=== PATIENT | female | born 1985 | race Hispanic/Latino ===

== ENCOUNTER 2023-11-15 22:40 | Inpatient (IN) | payer OTHER, SELFPAY ==
[2023-11-15 14:39] VITALS: BP 132/88
[2023-11-15 15:08] LABS: % Basophils 0.4 % (0-2); % Immature Granulocytes 0.5 % (0-0.5); % Lymphocytes 8.3 % (20.5-51.1); % Neutrophils 89.8 % (42.2-75.2); Absolute Basophils 0.1 10^3/uL (0-0.2); Absolute Immature Granulocytes 0.1 10^3/uL (0-0.05); Absolute Lymphocytes 1.4 10^3/uL (1.2-3.4); Absolute Monocytes 0.2 10^3/uL (0.1-0.6); Hematocrit 32.8 % (37.0-47.0); Hemoglobin 9.9 g/dL (12.0-16.0); Mean Corp Hgb Conc. 30.2 g/dL (33.0-37.0); Mean Corpuscular Hgb 20.9 pg (27.0-31.0); Mean Corpuscular Volume 69.2 fL (81.0-99.0); Mean Platelet Volume 9.7 fL (7.4-10.4); Nucleated Red Blood Cells % 0 %; Platelet Count 388 10^3/uL (130-400); Red Blood Cell Count 4.74 10^6/uL (4.20-5.40); Red Cell Dist. Width 17.3 % (11.5-14.5); White Blood Cell Count 16.7 10^3/uL (4.8-10.8)
[2023-11-15 15:25] LABS: ALT (SGPT) 24 U/L (0-35); AST (SGOT) 28 U/L (14-36); Albumin 4.7 g/dl (3.5-5.0); Alkaline Phosphatase 108 U/L (38-126); Blood Urea Nitrogen 10 mg/dl (7-17); Calcium 9.5 mg/dl (8.4-10.2); Carbon Dioxide 24 mmol/L (22-30); Chloride 104 mmol/L (98-107); Glucose 106 mg/dl (70-99); Potassium 4.6 mmol/L (3.5-5.1); Sodium 136 mmol/L (135-145); Total Bilirubin 0.7 mg/dl (0.2-1.3); Total Protein 7.5 g/dl (6.3-8.2); eGFR > 60.00
[2023-11-15 16:37] VITALS: BP 125/80
[2023-11-15 17:22] VITALS: BMI 34.0
[2023-11-15 17:23] VITALS: BP 138/90
[2023-11-15 17:58] LABS: HCG, Serum Qualitative Screen Negative
[2023-11-15 18:00] VITALS: BP 121/86
[2023-11-15] MEDS: REGLAN 10 MG IV (18:11)
[2023-11-15] MEDS: BENADRYL 25 MG IV (18:11)
[2023-11-15] MEDS: NSS 1000 IV ×2 (18:14→23:33)
--- NOTE | 2023-11-15 18:34 | ED.GENMED ---
History of Present Illness
<PAT Godoy Jr. Last Filed: 11/15/23 21:41>
General
Chief Complaint: Headache
Source: patient
Exam Limitations: none
Time Seen by Provider: 11/15/23 17:13
Nursing documentation reviewed up to this point in time: agreed with
History of Present Illness
History of Present Illness:
38-year-old female past medical history of migraines presenting to the emergency department today with concerns of headache that started this morning is bilateral and achy associated nausea and vomiting also feels that her right leg is numb and weak
she is never had this with a migraine before. Was able to ambulate denies any numbness weakness to her upper extremities denies back pain denies fevers no neck pain. No injuries.
Past History
<PAT Godoy Jr. Last Filed: 11/15/23 21:41>
Past History
ED Past Medical History: Asthma and GERD
ED Past Surgical History: and Other (Herniorrhaphy)
Social History
Tobacco: Non-smoker
Alcohol: None
Drug: None
Personal:
Living: with family
Employment: Other
Family History
Family History: Negative Early CAD or CAD
Review of Systems
<PAT Godoy Jr. Last Filed: 11/15/23 21:41>
Review of Systems
Allergies reviewed?: Yes
All Other Systems: ROS reviewed and negative except as documented in HPI and ROS
Phy Exam
<PAT Godyo Jr. Last Filed: 11/15/23 21:41>
Physical Exam
Physical Exam:
GENERAL: Alert , in no apparent distress
EYE: pupils equal and reactive
NECK: Supple, no significant adenopathy.
ENT: o/p clr, mmm.
CARDIAC: Regular rate and rhythm .
LUNGS: Clear breath sounds bilaterally, no acute respiratory distress, no wheezes/rales/rhonchi
ABDOMEN: Soft, without focal tenderness, no r/g, no cvat
NEUROLOGICAL: Alert and oriented, right leg has a very subtle decrease in strength compared to the left side. Also she claims subjectively that she has decree sensation to the right side compared to the left. Normal upper extremity examination
normal finger-nose. Normal HEENT exam.
SKIN: Warm and dry, skin intact.
MUSCULOSKELETAL: No edema, well perfused.
PSYCH: Normal and appropriate interaction.
Course
<Bartolo Renee Jr., PAT - Last Filed: 11/15/23 21:41>
Orders/Labs/Results
Orders:
Orders
11/15/23 14:48
CBC/With Diff [Complete Blood Count/With Diff] Urgent
CMP [Comprehensive Metabolic Panel] Urgent
HCG, Serum Qualitative Screen Urgent
Comment: ADD ON
11/15/23 17:26
CT Head W/o Iv Contrast Urgent
Comment:
Reason For Exam: righ tleg weakness/PARKER
Diphenhydramine [Benadryl] 25 mg IV NOW STA
Metoclopramide [Reglan] 10 mg IV NOW STA
11/15/23 17:27
Add On- LAB Urgent
Tests Added?: hcg serum
0.9% Sodium Chloride 1000 ml [Nss] 1,000 ml IV BOLUS
11/15/23 18:38
Dexamethasone Sod Phosphate [Decadron] 10 mg IV NOW STA
Ketorolac [Toradol] 15 mg IV NOW STA
11/15/23 19:02
CT Head & Neck Angio W/wo IV Urgent
Comment:
Reason For Exam: headache right leg numbness and weakness
11/15/23 21:32
Magnesium Sulfate 2 Gram/50 ml [Magnesium Sulfate] 2 gram in 50 ml IV NOW
Abnormal Lab Results
11/15/23
14:48
WBC 16.7 H 10^3/uL
(4.8-10.8)
Hgb 9.9 L g/dL
(12.0-16.0)
Hct 32.8 L %
(37.0-47.0)
MCV 69.2 L fL
(81.0-99.0)
MCH 20.9 L pg
(27.0-31.0)
MCHC 30.2 L g/dL
(33.0-37.0)
RDW 17.3 H %
(11.5-14.5)
Abs Immat Gran (auto) 0.1 H 10^3/uL
(0-0.05)
Absolute Neuts (auto) 15.0 H 10^3/uL
(1.4-6.5)
Neutrophils % 89.8 H %
(42.2-75.2)
Lymphocytes % 8.3 L %
(20.5-51.1)
Monocytes % 1.0 L %
(1.7-9.3)
Glucose 106 H mg/dl
(70-99)
11/15/23 14:48
11/15/23 14:48
Vital Signs
Initial and Last Documented VS:
Initial Vital Signs
Temp Pulse Resp BP Pulse Ox
36.6 C 85 18 132/88 100
11/15/23 14:39 11/15/23 14:39 11/15/23 14:39 11/15/23 14:39 11/15/23 14:39
Last Documented Vital Signs
Temp Pulse Resp BP Pulse Ox
36.8 C 105 22 121/86 99
11/15/23 16:37 11/15/23 18:00 11/15/23 16:37 11/15/23 18:00 11/15/23 16:37
<José Og MD - Last Filed: 11/15/23 21:38>
Orders/Labs/Results
Orders:
Orders
11/15/23 14:48
CBC/With Diff [Complete Blood Count/With Diff] Urgent
CMP [Comprehensive Metabolic Panel] Urgent
HCG, Serum Qualitative Screen Urgent
Comment: ADD ON
11/15/23 17:26
CT Head W/o Iv Contrast Urgent
Comment:
Reason For Exam: righ tleg weakness/PARKER
Diphenhydramine [Benadryl] 25 mg IV NOW STA
Metoclopramide [Reglan] 10 mg IV NOW STA
11/15/23 17:27
Add On- LAB Urgent
Tests Added?: hcg serum
0.9% Sodium Chloride 1000 ml [Nss] 1,000 ml IV BOLUS
11/15/23 18:38
Dexamethasone Sod Phosphate [Decadron] 10 mg IV NOW STA
Ketorolac [Toradol] 15 mg IV NOW STA
11/15/23 19:02
CT Head & Neck Angio W/wo IV Urgent
Comment:
Reason For Exam: headache right leg numbness and weakness
11/15/23 21:32
Magnesium Sulfate 2 Gram/50 ml [Magnesium Sulfate] 2 gram in 50 ml IV NOW
Abnormal Lab Results
11/15/23
14:48
WBC 16.7 H 10^3/uL
(4.8-10.8)
Hgb 9.9 L g/dL
(12.0-16.0)
Hct 32.8 L %
(37.0-47.0)
MCV 69.2 L fL
(81.0-99.0)
MCH 20.9 L pg
(27.0-31.0)
MCHC 30.2 L g/dL
(33.0-37.0)
RDW 17.3 H %
(11.5-14.5)
Abs Immat Gran (auto) 0.1 H 10^3/uL
(0-0.05)
Absolute Neuts (auto) 15.0 H 10^3/uL
(1.4-6.5)
Neutrophils % 89.8 H %
(42.2-75.2)
Lymphocytes % 8.3 L %
(20.5-51.1)
Monocytes % 1.0 L %
(1.7-9.3)
Glucose 106 H mg/dl
(70-99)
11/15/23 14:48
11/15/23 14:48
Vital Signs
Initial and Last Documented VS:
Initial Vital Signs
Temp Pulse Resp BP Pulse Ox
36.6 C 85 18 132/88 100
11/15/23 14:39 11/15/23 14:39 11/15/23 14:39 11/15/23 14:39 11/15/23 14:39
Last Documented Vital Signs
Temp Pulse Resp BP Pulse Ox
36.8 C 105 22 121/86 99
11/15/23 16:37 11/15/23 18:00 11/15/23 16:37 11/15/23 18:00 11/15/23 16:37
<Bartolo Renee Jr., PA-C - Last Filed: 11/15/23 21:41>
MDM/Problems Addressed
MDM/Problems Addressed:
38-year-old female presenting to the emergency department complains of diffuse achy throbbing headache starting this morning initially felt similar to previous migraines but also now having right leg numbness. Upon arrival vital signs are normal
patient no obvious distress labs show white count of 16.7 hemoglobin 9.9 but patient chronically anemic other labs unremarkable on examination her right leg is slightly weaker than the left leg is also clean decree sensation on the right side but
does have gross sensation intact. CT scan was ordered considering this. CT scan without emergent findings. Case was discussed with neurology recommending Plavix aspirin otherwise getting CT angiogram. Angiogram without emergent findings patient
with ongoing weakness to the right leg and potential some weakness to the right upper extremity plan to admit for further monitoring and assessment by neurology.
<Bartolo Renee Jr., PA-C - Last Filed: 11/15/23 21:41>
*Critical Care Note
Total Time (30-74mins, 75-104mins- exclusive of procedures): Not Applicable
ED Attending Note
<Bartolo Renee Jr., PA-C - Last Filed: 11/15/23 21:41>
-
Portions of this chart may have been created with voice recognition software.� Occasional wrong word or��sound alike� substitutions may have occurred due to the inherent limitations of voice recognition software.
<José Og MD - Last Filed: 11/15/23 21:38>
ED Attending Note
Patient seen and examined by attending physician: Yes
ED Attending Note:
I have seen and evaluated the patient with a [id number] encounter. I have spoken to the advance practicer provider and involved in the medical history, the physical exam, medical decision making.
Evaluation and management service: agree unless noted differently below.
Results interpretation: agree unless noted differently below.
Focused HPI: 38-year-old female with past medical history of migraines, pseudotumor cerebri who presents to the emergency room for evaluation of headache and right-sided weakness. Patient says that it started around 7 AM and has been constant all
day. She reports a bitemporal throbbing headache. She reports associated blurry vision. She says that she feels weak in her right leg as well as some numbness. She has not noticed any weakness in her upper extremities. She denies any speech
difficulties. She denies any other complaints. There was no head trauma. She says that she did have similar symptoms in August 2022 and was told related to pseudotumor cerebri.
Physical exam: Awake alert not in distress. Vital signs normal. Cranial nerves intact 2 through 12. Speech fluent no dysarthria or aphasia. No limb ataxia. She has subtle weakness, 4+/5 strength right upper and lower extremity proximally and
distally; 5/5 strength proximally and distally left upper and lower extremity. Sensory objectively intact. Extremities warm well-perfused.
Medical Decision Makin-year-old female presents for evaluation of headache associated with right-sided weakness in the leg�also appears to have some arm weakness on exam. Vital signs normal. Exam as above. Check CT head. Check labs. Treat
symptomatically. Differential includes dissection, aneurysm, stroke, complex migraine, pseudotumor.
CT head negative, discussed with neurology will pursue CTA head and neck. Labs reviewed and significant for leukocytosis and chronic anemia.
CTA head and neck no clear acute pathology noted on my review�awaiting final radiology report. CATE discussed with neurology who recommended treating with aspirin and Plavix and admission.
Discharge Plan
Departure
Patient Disposition: Admit
Date of Disposition: 11/15/23
Time of Disposition: 21:39
Admit to: Telemetry
Admit to doctor: Isidoro
Presentation/result/management discussed w/ accepting MD/DO: Hospitalist
Patient with high blood pressure during this ER visit?: No
Condition: Good
Covid-19: Not Applicable
Discharge Problem:
Headache, Right sided weakness, Paresthesia of right leg
Prescriptions:
No Action
ibuprofen 600 MG tablet
600 mg PO Q6H Qty: 20 0RF
acetaminophen 325 MG tablet
650 mg PO Q4HPRN PRN (Reason: mild pain) 0RF
albuterol sulfate [ProAir HFA] 90 mcg/actuation HFA aerosol inhaler
1 puff inhalation Q4HPRN PRN (Reason: shortness of breath) Qty: 8.5 0RF
amoxicillin-pot clavulanate 875-125 mg tablet
1 tab PO BID Qty: 20 0RF
ibuprofen 600 mg tablet
600 mg PO Q8H PRN (Reason: fever or pain) Qty: 14 0RF
ondansetron 4 mg Tablet,Disintegrating
4 mg PO TIDPRN PRN (Reason: nausea/vomiting) Qty: 10 0RF
prochlorperazine maleate [Compazine] 10 mg tablet
10 mg PO BID PRN (Reason: nausea and vomiting) Qty: 10 0RF
Referrals:
Junior Lui MD [Family Provider] -
Interventions
Interventions:
*Risk Screen - Suicide Last Done: 11/15/23 14:39
*General Assessment Last Done: 11/15/23 14:39
*Neglect/Abuse Screening Last Done: 11/15/23 14:39
ED- Fall Risk Assessment Last Done: 11/15/23 17:20
*ED COVID-19 Vaccine History Last Done: 11/15/23 14:39
ED- Neurological Assessment Last Done: 11/15/23 17:20
Discharge Date and Time
Print Language: YORUBA
[2023-11-15] MEDS: DECADRON 10 MG IV (18:44)
[2023-11-15] MEDS: TORADOL 15 MG IV (18:44)
[2023-11-15] MEDS: MAGNESIUM SULFATE 50 IV (21:50)
[2023-11-15] MEDS: ASPIRIN 325 MG PO (21:50)
[2023-11-15] MEDS: PLAVIX 300 MG PO (21:50)
--- NOTE | 2023-11-15 22:23 | HPS.HSE ---
Family Physician
-
Family Physician: Junior Lui MD
Chief Complaint
-
headache
History of Present Illness
38-year-old female with past medical history of migraines, pseudotumor cerebri, asthma, GERD, presenting to the emergency room with headache that started this morning that is bilateral and and associated with nausea and vomiting as well as numbness
and weakness of her right leg and sensitivity to light. She has been associated blurry vision, visual aura. She states that she gets migraines perhaps once a month with similar symptoms but they are never accompanied by neurological symptoms.
She had some chest pain earlier but this has resolved. She denies any shortness of breath. She denies any abdominal pain or diarrhea. She denies any fevers or chills.
She states that she was diagnosed with pseudotumor cerebri on visual field examinations a year ago. Her mother and sister also diagnosed with pseudotumor cerebri.
She denies smoking or alcohol or drugs.
Medical History
Past Medical History
Past Medical History: Reports Other (migraines, pseudotumor cerebri, asthma, GERD)
Past Surgical History: Reports Other (Cholecystectomy, )
Social History
Tobacco: Non-smoker
Alcohol: None
Drug: None
Family History
Family History: Other (mother and sister with pseudotumor cerebri )
Allergies / Home Medications
Allergies reflects when Allergies were last updated in [facility].
Home Medications with original date entered in [facility]
Allergy/Medication List:
Allergies
Allergy/AdvReac Type Severity Reaction Status Date / Time
No Known Allergies Allergy Verified 11/15/23 14:38
Home Medications
ferrous sulfate 325 mg (65 mg iron) tablet 325 mg PO DAILY 11/15/23
riboflavin (vitamin B2) 400 mg tablet 400 mg PO DAILY 11/15/23
sumatriptan succinate 25 mg tablet 25 mg PO DAILYPRN PRN migraine 11/15/23
trazodone 50 mg tablet 75 mg PO HS 11/15/23
Review of Systems
-
History Source: Patient
A 12 point ROS was completed and negative except as noted: Yes
Constitutional: Reports No Symptoms
EENT: Reports No Symptoms
Respiratory: Reports No Symptoms
Cardiac: Reports No Symptoms
Abdomen/GI: Reports No Symptoms
: Reports No Symptoms
Musculoskeletal: Reports No Symptoms
Skin: Reports No Symptoms
Neurological: Reports See HPI
Endocrine: Reports No Symptoms
Hematologic/Lymphatic: Reports No Symptoms
Psych: Reports No Symptoms
Physical Exam
Vital Signs
Vital Signs
Temp Pulse Resp BP Pulse Ox
98.2 F 105 22 121/86 99
11/15/23 16:37 11/15/23 18:00 11/15/23 16:37 11/15/23 18:00 11/15/23 16:37
Physical Exam
General: Well Developed, Well Nourished and No Apparent Distress
HEENT: NormoCephalic, Moist mucous membranes and Atraumatic
Respiratory: Clear
Cardiac: S1/S2 and Regular Rhythm; No Murmur or Rub
GI: Soft, Non Tender, Non Distended and Normal Bowel Sounds; No Organomegaly
Rectal: Deferred by Provider
Musculoskeletal: No Clubbing, No Cyanosis and No Edema
Skin: No Rash
Neuro: Nonfocal/grossly intact and Other (numbness and weakness of right lower extremity )
Laboratory Results
-
11/15/23 14:48
11/15/23 14:48
Laboratory Results
Total Bilirubin 0.7 mg/dl (0.2-1.3) 11/15/23 14:48
AST 28 U/L (14-36) 11/15/23 14:48
ALT 24 U/L (0-35) 11/15/23 14:48
Alkaline Phosphatase 108 U/L (38-126) 11/15/23 14:48
Data Reviewed
-
Lab Data: Labs Reviewed by me
Old Records: Reviewed
Impression/Plan
-
IMPRESSION:
PLAN:
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
-Ketorolac, Reglan, Benadryl, dexamethasone, magnesium given
-IV fluids given, continue for maintenance
-Headache is improved after initial dose of medications but she continues to feel numbness of her right leg
-Continue ketorolac, Reglan, Benadryl
-Aspirin and Plavix given
-Check MRI brain
-Neuro checks per protocol
-Continue trazodone
-Hold triptans
-Neurology consulted
History of pseudotumor cerebri
Chronic microcytic anemia
-Continue ferrous sulfate
Asthma
GERD
Full code
DVT prophylaxis-SCDs
Regular diet
[2023-11-15] MEDS: DESYREL 75 MG PO ×2 (23:33→23:34)
[2023-11-15] MEDS: DESYREL PO (23:36)
[2023-11-16] VITALS (11 sets, daily range): BP systolic 95–114; BP diastolic 57–71; BMI 28.7
[2023-11-16] MEDS: TORADOL 15 MG IV (02:07)
[2023-11-16 06:44] LABS: % Basophils 0.2 % (0-2); % Immature Granulocytes 0.7 % (0-0.5); % Lymphocytes 10.8 % (20.5-51.1); % Monocytes 3.5 % (1.7-9.3); % Neutrophils 84.8 % (42.2-75.2); Absolute Immature Granulocytes 0.1 10^3/uL (0-0.05); Absolute Lymphocytes 1.7 10^3/uL (1.2-3.4); Absolute Monocytes 0.5 10^3/uL (0.1-0.6); Absolute Neutrophils 12.9 10^3/uL (1.4-6.5); Hematocrit 29.1 % (37.0-47.0); Hemoglobin 8.9 g/dL (12.0-16.0); Mean Corp Hgb Conc. 30.6 g/dL (33.0-37.0); Mean Corpuscular Hgb 20.5 pg (27.0-31.0); Mean Corpuscular Volume 67.1 fL (81.0-99.0); Mean Platelet Volume 9.9 fL (7.4-10.4); Nucleated Red Blood Cells % 0 %; Platelet Count 397 10^3/uL (130-400); Red Blood Cell Count 4.34 10^6/uL (4.20-5.40); Red Cell Dist. Width 17.3 % (11.5-14.5); White Blood Cell Count 15.2 10^3/uL (4.8-10.8)
[2023-11-16] MEDS: FEOSOL 325 MG PO (07:25)
[2023-11-16] MEDS: BENADRYL 25 MG IV (07:27)
[2023-11-16 07:39] LABS: ALT (SGPT) 20 U/L (0-35); AST (SGOT) 20 U/L (14-36); Albumin 3.9 g/dl (3.5-5.0); Alkaline Phosphatase 88 U/L (38-126); Blood Urea Nitrogen 10 mg/dl (7-17); Calcium 9.2 mg/dl (8.4-10.2); Carbon Dioxide 22 mmol/L (22-30); Chloride 109 mmol/L (98-107); Estimated Creatinine Clearance > 125 ml/min; Glucose 115 mg/dl (70-99); Potassium 4.2 mmol/L (3.5-5.1); Sodium 138 mmol/L (135-145); Total Bilirubin 0.5 mg/dl (0.2-1.3); Total Protein 6.5 g/dl (6.3-8.2); eGFR > 60.00
--- NOTE | 2023-11-16 08:18 | CON.NEURO4 ---
Addendum entered and electronically signed by Demarco Roe MD 11/16/23 14:49:
I saw and evaluated the patient I reviewed the note by Lesa Christensen agree with the findings the following comments:
38-year-old woman with a past medical history of obesity and migraine with aura presenting the hospital with symptoms of significant migraine with new symptoms of paresthesia and weakness of the right leg that she had not experienced before.
Patient had woken up with a migraine the morning of 11/14 with characteristic photophobia severe headache as well as some nausea and vomiting but noted she had right leg weakness and paresthesia which she had never experienced before. Had some
blurred vision and typical visual aura. No obvious triggers to this episode she usually gets migraine around once a month, had not use any triptans recently.
Patient resting and napping with some evidence of photophobia but has normal neurologic examination with appropriate mental status normal cranial nerves and motor function
Brain MRI with and without contrast with no acute stroke no abnormal contrast-enhancement no edema or hemorrhages
Assessment: Presumed this is migraine with sensory and motor aura in a patient who is otherwise fairly well-controlled migraines
Recommendations
-Try dose of 50 mg sumatriptan once and if headache still present give 100 mg sumatriptan 2 hours later and additionally give 1 further dose of IV dexamethasone 10 mg now
-If still unimproved would give 50 mg prednisone p.o. for 5 days
-Expect rest and hydration will improve things
Original Note:
Documented by User: Lesa Zuñiga NP 11/16/23 14:25
Consultation - Neurology 4
-
CONSULTING PHYSICIAN: Daisha Roe MD
REFERRING PHYSICIAN: Hospitalists/Dr. Lopez
DICTATED BY: ZELDA Almeida
DATE/TIME OF REQUEST: 11/15/23
DATE/TIME OF CONSULTATION: 11/16/23
Reason for Consultation: Headache
History of Present Illness:
This is a 38-year-old female who has presented to the hospital on 11/15/23 with report of migraine and RLE numbness/weakness. Patient reports a history of migraine headaches associated with visual aura including zig-zig lines and blotchy vision
loss, photo/phonophobia, nausea, and vomiting starting 1.5 years ago. She reports being diagnosed with pseudotumor cerebri after her initial migraine. She takes riboflavin and ferrous sulfate daily and uses sumatriptan as a headache rescue. She
reports about one migraine per month. She thinks she has been seen by a Neurologist as an outpatient but she cannot recall their name. She has never had extremity weakness/numbness with her previous headaches.
Yesterday (11/15/23), she reports waking up at 0700 with an 8/10 bitemporal migraine and RLE tingling/weakness. She did not take any medications for her headache. She presented to the ER due to concern over her RLE symptoms. CT head and CTA
head/neck were obtained on arrival and are negative for any acute abnormalities. She was not a candidate for TNK/IAT due to outside of the time window and low NIHSS. She was loaded with aspirin/plavix initially due to concern for stroke. She reports
some headache relief after receiving headache medications in the ER, but no improvement in her RLE symptoms. MRI brain was obtained today and is normal. Currently, her headache is an 8/10 and she reports photo/phonophobia, and nausea but no
vomiting. She denies any dizziness, vision changes, speech/swallow difficulty, chest pain, palpitations, and shortness of breath.
Past Medical History: Migraines, pseudotumor cerebri, asthma, GERD
Surgical History: , herniorrhaphy
Family History: Mother and sister- pseudotumor cerebri/migraines
Social History: Denies tobacco, alcohol, and illicit drug use.
Allergies: No known allergies.
Home Medications: See below.
Review of Symptoms:
Patient denies any fever, chest pain, shortness of breath, or symptoms.
�Per the HPI.�All systems are reviewed negative except above.
Physical Exam:
The patient is afebrile, abdomen is nondistended, breathing is unlabored, skin is warm and dry, no edema.
Neurologic Examination:
The patient is awake, alert and oriented x 3. She is able to follow commands and answer questions appropriately. There is no aphasia or dysarthria. On cranial nerve assessment, pupils are 3 mm bilateral, round and reactive to light and
accommodation. Visual morrison are full. Extraocular movements are intact. Facial sensations are intact and bilaterally symmetrical, there is no facial asymmetry. Hearing is intact bilaterally to normal conversation volume. Tongue palate and uvula are
midline. Sternocleidomastoid strengths are full bilaterally. Motor strengths are 5/5 bilateral upper, 5/5 left lower, and 4/5 right lower extremities on medical research [place] scale. There is no drift or involuntary movement noted. Deep tendon
reflexes are 2+ bilateral upper and lower extremities and Babinski is absent bilaterally. Sensations of touch and cold are diminished in the RLE. There was no extinction noted on double simultaneous stimulation. Coordination is intact by finger to
nose bilaterally.
Lab Results: See below.
Neuro Imaging:
1. CT Head 11/15/23: No evidence of acute intracranial abnormality.
2. CTA head/neck 11/15/23: Apalasia of the A1 segment of the right anterior cerebral artery, considered normal variation. Otherwise normal appearance of the intracranial circulation. Normal appearance of the common carotid arteries, carotid bulbs,
and internal carotid arteries bilaterally. Normal appearance of the vertebral and basilar arteries. Normal appearance of the posterior cerebral arteries.
3. MRI Brain 11/16/23: No acute intracranial abnormality.
Differentials for the patient's presentation include:
1. Migraine aura likely producing RLE symptoms.
2. MRI brain negative for stroke, demyelinating process, and any other abnormalities.
Patient has the following risk factors for their symptoms: hx visual changes with migraines
Recommendations:
-Provide sumatriptan 50mg x1 now and 100mg x1 in 2 hours for migraine relief.
-Rest encouraged, okay to recover at home later today from Neurology's perspective.
-Follow-up with outpatient Neurologist.
Discussed patient care with: Dr. Roe, the patient
Vital Signs and Labs
-
Vital Signs and Labs:
Vital Signs
Temp Pulse Resp BP Pulse Ox
98.0 F 93 16 102/60 99
11/16/23 11:00 11/16/23 11:00 11/16/23 11:00 11/16/23 11:00 11/16/23 11:00
Lab Results
11/16/23 06:26
11/16/23 06:26
Sodium 138 mmol/L (135-145) 11/16/23 06:26
Potassium 4.2 mmol/L (3.5-5.1) 11/16/23 06:26
BUN 10 mg/dl (7-17) 11/16/23 06:26
Glucose 115 mg/dl (70-99) H 11/16/23 06:26
Calcium 9.2 mg/dl (8.4-10.2) 11/16/23 06:26
Medications
-
Active Medications
Generic Name Dose Route Start Last Admin
Trade Name Freq PRN Reason Stop Dose Admin
Diphenhydramine HCl 25 mg 11/15/23 23:19 11/16/23 07:27
Diphenhydramine 50 Mg/Ml 1 Ml Vial IV 12/13/23 23:18 25 mg
Q4HPRN PRN Administration
migraine
Ferrous Sulfate 325 mg 11/16/23 08:00 11/16/23 07:25
Ferrous Sulfate 325 Mg Tablet PO 12/14/23 07:59 325 mg
DAILY CLIFF Administration
Sodium Chloride 1,000 mls @ 70 mls/hr 11/15/23 23:19 11/16/23 13:47
Nss IV 1,000 mls
.[id number] CLIFF Administration
Ketorolac Tromethamine 15 mg 11/15/23 23:19 11/16/23 02:07
Ketorolac 15 Mg/Ml Injection IV 11/20/23 23:18 15 mg
Q6HPRN PRN Administration
moderate pain
Sodium Chloride 0 flush 07/31/24 23:00
Sodium Chloride 0.9% (Flush) Syringe IV 12/13/23 22:59
PER PROTOCOL CLIFF
Trazodone HCl 75 mg 11/16/23 22:00 11/15/23 23:34
Trazodone 50 Mg Tablet PO 12/14/23 21:59 75 mg
HS CLIFF Administration
Home Medications
�Medication �Instructions �Recorded
ferrous sulfate 325 mg (65 mg 325 mg PO DAILY Supplement 11/15/23
iron) tablet
riboflavin (vitamin B2) 400 mg 400 mg PO DAILY Supplement 11/15/23
tablet
sumatriptan succinate 25 mg tablet 25 mg PO DAILYPRN PRN migraine 11/15/23
trazodone 50 mg tablet 75 mg PO HS Sleep 11/15/23
NIH Stroke Score
Subsequent NIH Scale
Date of Subsequent NIH Scale: 11/16/23
Time of Subsequent NIH Scale: 10:15
NIH Stroke Score
Level of Consciousness: 0 - Alert
LOC Questions: 0-Answers both correctly
LOC Commands: 0-Performs both correctly
Best Horizontal Gaze: 0-Normal
Visual Morrison: 0=Normal, no visual loss
Facial Palsy: 0=Normal, symmetrical
Motor - Right Arm: 0=No drift 10 seconds
Motor - Left Arm: 0=No drift 10 seconds
Motor - Right Le-Drift < 5 seconds
Motor - Left Le-No drift 5 seconds
Limb Ataxia: 0-Absent
Sensation: 1-Mild loss
Best Language: 0-No aphasia
Dysarthria: 0-Normal
Extinction and Inattention: 0-No abnormality
Total Score:: 2

Documented by User: Demarco Roe MD 11/16/23 14:44
NIH Stroke Score
NIH Stroke Score
Total Score:: 2
--- NOTE | 2023-11-16 08:42 | W.PN.HOSP.TC ---
Today's Communication/Plan
-
see bold
Assessment / Plan
Assessment / Plan
HPI: 38-year-old female with past medical history of migraines, pseudotumor cerebri, asthma, GERD, presenting to the emergency room with headache that started this morning that is bilateral and and associated with nausea and vomiting as well as
numbness and weakness of her right leg and sensitivity to light. She has been associated blurry vision, visual aura. She states that she gets migraines perhaps once a month with similar symptoms but they are never accompanied by neurological
symptoms.
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
Status post IV dexamethasone, Toradol, Reglan, Benadryl, Mg in the ER
Continue ketorolac, Reglan, Benadryl prn
Brain MRI neg
Appreciate neurology input, patient was ordered Imitrex with more IV dexamethasone, and Reglan
If headache does not improve, can also give prednisone 50 mg daily for 5 days
History of pseudotumor cerebri
Chronic microcytic anemia
-Continue ferrous sulfate
Asthma
GERD
DVT prophylaxis�SCDs
Full code
Total time spent to see the patient on the floor, examine the patient, review data and lab results, discuss treatment plan with patient, nursing staff around 35 minutes.
Physical Exam
General: No acute distress
HEENT: Normocephalic, Atraumatic, EOMI, MMM
Respiratory: Clear to Auscultation bilaterally
Cardiac: Normal S1/S2, Regular Rate and Rhythm
GI: Soft, Nontender, Nondistended, Normal Bowel Sounds
Extremities: No Clubbing, Cyanosis, or Edema
Neuro: Nonfocal/Grossly Intact
Psych: Calm, Cooperative
Derm: No Visible lesions
Anticipated Discharge: Within 24 hours
Subjective/Interval History
-
Date of Service: November 16, 2023
Patient complains of headache, 8 out of 10 in intensity, associated with nausea and photophobia. She continues to have right leg weakness. No fever.
Objective Data
-
Labs:
Laboratory Results
11/16/23
06:26
WBC 15.2 H
Hgb 8.9 L
Hct 29.1 L
Plt Count 397
Sodium 138
Potassium 4.2
Chloride 109 H
Carbon Dioxide 22
BUN 10
Creatinine 0.6
Glucose 115 H
Calcium 9.2
Total Bilirubin 0.5
AST 20
ALT 20
Alkaline Phosphatase 88
Vital Signs:
Vital Signs
Temp Pulse Resp BP Pulse Ox
97.9 F 60 20 107/63 97
11/16/23 04:15 11/16/23 04:33 11/16/23 04:33 11/16/23 04:15 11/16/23 06:15
I&O
11/15/23 11/16/23 11/17/23
06:59 06:59 06:59
Intake Total 400 / 400
Balance 400 / 400
[2023-11-16] MEDS: TORADOL 30 MG IV (09:58)
[2023-11-16] MEDS: COMPAZINE 10 MG IV (10:06)
[2023-11-16] MEDS: IMITREX 50 MG PO (11:50)
[2023-11-16] MEDS: DECADRON 10 MG IV (12:17)
[2023-11-16] MEDS: IMITREX 100 MG PO (13:47)
[2023-11-16] MEDS: NSS 1000 IV (13:47)
--- NOTE | 2023-11-16 14:20 | CM ---
Reviewed chart, met with patient to obtain information for assessment. Patient stated that she lives with her spouse in a three story, single home with 10 steps to enter. Patient described herself as independent with her ADLs, personal care, bathing
and dressing. She is able to do environmental aide, cook, clean and do laundry. She drives and can get to her appointments and do all of her own shopping.
Patient denies any DME in her home.
She has never had VN services
She has never been to a SNF
Patient's pharmacy is, [facility] in [place].
Her PCP is, Dr. Junior Lui.
Patient confirmed that she has transportation home when she is medically cleared for discharge.
Plan: Case management will continue to follow and assist with discharge planning. Home when medically stable.
[2023-11-16] MEDS: DESYREL 75 MG PO (22:42)
[2023-11-17 03:31] VITALS: BP 97/62
[2023-11-17 04:10] VITALS: BP 105/70
[2023-11-17] MEDS: NSS 1000 IV (06:55)
[2023-11-17 07:00] VITALS: BP 103/63
[2023-11-17] MEDS: FEOSOL 325 MG PO (07:49)
--- NOTE | 2023-11-17 08:20 | W.PN.NEURO.1 ---
Addendum entered and electronically signed by Demarco Roe MD 11/17/23 11:45:
I saw and evaluated the patient, reviewed the note by Lesa Zuñiga and agree with findings with following comments:
38 year old woman presenting with migraine headache along with new symptoms not previously experienced of right leg paresthesia and weakness which represent migraine motor and sensory aura. She has improving migraine, was able to eat today, no
vomiting.
MRI brain reassuring
Assessment: Migraine headache with sensory and motor aura
Recommendations
-Additional triptan dosing today
-Toradol, IV depakote, Reglan
-Seems to be improving and responding
-Instructed she needs to take home sumatriptan BOLIVAR when migraine comes on
-Maybe home later on today
Will sign off call with questions and concerns
Original Note:
Today's Communication / Plan
-
.
Neuro Assessment/Plan
Assessment
This is a 38-year-old woman with a past medical history of obesity and migraine with aura presenting the hospital on 11/15/23 report of with symptoms of significant migraine with new symptoms of paresthesia and weakness of the right leg that she had
not experienced before.
-CTA head/neck 11/15/23: Apalasia of the A1 segment of the right anterior cerebral artery, considered normal variation. Otherwise normal appearance of the intracranial circulation. Normal appearance of the common carotid arteries, carotid bulbs, and
internal carotid arteries bilaterally. Normal appearance of the vertebral and basilar arteries. Normal appearance of the posterior cerebral arteries.
-MRI brain 11/16/23: No acute intracranial abnormality.
I. Migraine aura likely producing RLE symptoms.
II. MRI brain negative for stroke, demyelinating process, and any other abnormalities.
Plan
-Provide sumatriptan 100mg PO x1 now, and repeat dose in 2 hours.
-Provide toradol 30mg IV and compazine 10mg IV x1 now.
-Provide valproic acid 750mg IV x1 now.
-If still unimproved would give 50 mg prednisone p.o. for 5 days
-Expect rest and hydration will improve things.
-Patient instructed to take sumatriptan at the onset of her migraine next time as taking it early one relives migraine symptoms more effectively.
-Patient should follow-up with her outpatient Neurologist.
Subjective/Objective
Subjective Data
Date of Service: November 17, 2023
No acute events overnight. Patient reports decent migraine relief yesterday after receiving sumatriptan, but her headache worsened hours later and is a 7/10 currently. She still endorses RLE tingling and slight weakness, denies difficulty
ambulating. She reports photo/phonophobia and mild nausea and mild visual disturbance, no vomiting. She denies any dizziness, speech/swallow difficulty, chest pain, palpitations, and shortness of breath.
Objective Data
Vital Signs
Temp Pulse Resp BP Pulse Ox
98.2 F 84 16 103/63 99
11/17/23 07:00 11/17/23 07:00 11/17/23 07:00 11/17/23 07:00 11/17/23 07:00
Lab Results
11/16/23 06:26
11/16/23 06:26
Sodium 138 mmol/L (135-145) 11/16/23 06:26
Potassium 4.2 mmol/L (3.5-5.1) 11/16/23 06:26
BUN 10 mg/dl (7-17) 11/16/23 06:26
Glucose 115 mg/dl (70-99) H 11/16/23 06:26
Calcium 9.2 mg/dl (8.4-10.2) 11/16/23 06:26
Patient Allergies
No Known Allergies Allergy (Verified 11/15/23 14:38)
Review of Systems
-
History Source: Patient
EENT: Blurry Vision; Negative Decreased Vision or Swallowing Difficulty
Respiratory: Negative Cough or Trouble Breathing
Cardiac: Negative Chest Pain or Palpitations
Abdomen/GI: Nausea; Negative Vomiting
Neuro: Headache, Weakness and Numbness; Negative Dizzy, Ataxia, Tremors or Speech Problem
Physical Exam
-
General: Well Developed and Well Nourished
Eyes: No Ptosis and PERRLA
HEENT: Normocephalic and Atraumatic
Neck: Full Range of Motion
Respiratory: No Dyspnea
GI: Non-distended
Extremities: No Clubbing, No Cyanosis and No Edema
Psych: Unremarkable
Extended Neurological Exam
Mood & Affect: Mood Unremarkable and Affect Unremarkable
Attention Span & Concentration: Awake, Alert, Interactive and No Difficulty with 2 Step Request
Memory: Unremarkable (AAOx3) and Able to Recall
Tremor: Hand Tremor Absent and Head Tremor Absent
Involuntary Movement: None
Speech: Quality Unremarkable, Quantity Unremarkable and Rate of Production Unremarkable
Cranial Nerve II: Left Eye: Pupillary Reactivity Unremarkable, Pupillary Size Unremarkable and Visual Morrison Intact
Cranial Nerve II: Right Eye: Pupillary Reactivity Unremarkable, Pupillary Size Unremarkable and Visual Morrison Intact
Cranial Nerves III, IV, : Extraocular Movement: Extraocular Movement Full in all Directions
Cranial Nerve V: Facial Sensation: Intact to Light Touch
Cranial Nerve VII: Facial Symmetry: Normal Facial Symmetry
Cranial Nerve VIII: Hearing: Unremarkable Hearing to Normal Conversational Volume
Cranial Nerves IX, X: Palate Movement: Palate Elevation Symmetric
Cranial Nerve XI: Shoulder Shrug: Unremarkable
Cranial Nerve XII: Tongue Protusion: Midline
Muscle Strength, Overall: Reduced on Right (RLE 5-/5)
Muscle Bulk & Tone: Bulk Unremarkable and Tone Unremarkable
Pronator Drift: No Drift in Upper Extremities and No Drift in Lower Extremities
Deep Tendon Reflexes: Unremarkable Throughout
Cold Sensation: Reduced (in RLE)
Vibration Sensation: Reduced (RLE)
Touch Sensation: Double Simultaneous Stimulation Unremarkable and Other (reduced RLE)
Coordination: Tniyqm-yrmp-hlltig Testing Unremarkable
Babinski Sign: Absent Bilaterally
Data Reviewed
-
CT-A: Report Reviewed and Image Reviewed
CT Head: Report Reviewed and Image Reviewed
MRI Head: Report Reviewed and Image Reviewed
Labs: Report Reviewed
Reviewed with: Physician and Patient
--- NOTE | 2023-11-17 08:37 | W.PN.HOSP.TC ---
Today's Communication/Plan
-
Cleared by neurology for discharge today
Assessment / Plan
Assessment / Plan
HPI: 38-year-old female with past medical history of migraines, pseudotumor cerebri, asthma, GERD, presenting to the emergency room with headache that started this morning that is bilateral and and associated with nausea and vomiting as well as
numbness and weakness of her right leg and sensitivity to light. She has been associated blurry vision, visual aura. She states that she gets migraines perhaps once a month with similar symptoms but they are never accompanied by neurological
symptoms.
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
Status post IV dexamethasone, Toradol, Reglan, Benadryl, Mg in the ER
Brain MRI neg
Appreciate neurology input, patient was ordered Imitrex with more IV dexamethasone, IV toradol, and Reglan 11/15
Headache improving, patient given additional IV Depakote, triptan, Toradol, compazine and prednisone 11/16
Medically stable for discharge on prednisone 50 mg daily for 5 days, Imitrex, Reglan, Benadryl as needed
Patient has been instructed to take her Imitrex as soon as headache begins, and to follow-up with her usual neurologist in the office
History of pseudotumor cerebri
Chronic microcytic anemia
-Continue ferrous sulfate
Asthma
GERD
DVT prophylaxis�SCDs
Full code
Physical Exam
General: No acute distress
HEENT: Normocephalic, Atraumatic, EOMI, MMM
Respiratory: Clear to Auscultation bilaterally
Cardiac: Normal S1/S2, Regular Rate and Rhythm
GI: Soft, Nontender, Nondistended, Normal Bowel Sounds
Extremities: No Clubbing, Cyanosis, or Edema
Neuro: Nonfocal/Grossly Intact
Psych: Calm, Cooperative
Derm: No Visible lesions
Anticipated Discharge: Today
Subjective/Interval History
-
Date of Service: November 17, 2023
Patient reports her headache is improved. She continues to have right leg numbness and weakness. No fever, no vomiting.
Objective Data
-
Vital Signs:
Vital Signs
Temp Pulse Resp BP Pulse Ox
98.2 F 84 16 103/63 99
11/17/23 07:00 11/17/23 07:00 11/17/23 07:00 11/17/23 07:00 11/17/23 07:00
I&O
11/16/23 11/17/23 11/18/23
06:59 06:59 06:59
Intake Total 400 / 400 1660 / 1660
Balance 400 / 400 1660 / 1660
[2023-11-17] MEDS: DEPACON 57.5 MG IV (09:23)
[2023-11-17] MEDS: IMITREX 100 MG PO ×2 (09:23→11:34)
[2023-11-17] MEDS: TORADOL 30 MG IV (09:25)
[2023-11-17] MEDS: COMPAZINE 10 MG IV (09:25)
--- NOTE | 2023-11-17 11:15 | W.DCSUMMARY ---
Discharge Summary
Discharge Data
Date of Admission: 11/15/23
Date of Discharge: 11/17/23
-
Pending Results: No
Hospital Course
Discharge diagnosis:
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
History of pseudotumor cerebri
Chronic iron deficiency anemia
Asthma
Gastroesophageal reflux disease
Consults: Neurology
Brain MRI:
No acute intracranial abnormality.
Hospital course:
38-year-old female with a past medical history of migraines, pseudotumor cerebri, asthma, and GERD was admitted for a hemiplegic migraine with an aura and right lower extremity weakness/numbness. Brain MRI was negative for acute abnormality. She
received IV dexamethasone, Toradol, Reglan, Benadryl, and magnesium in the ER.
Patient was seen in conjunction with neurology. She was treated with more IV dexamethasone, IV Depakote, Imitrex, Reglan, and Benadryl. After several days, her headache did improve. Her right lower extremity weakness improved as well, and she did
have residual numbness. Neurology recommends that she be discharged on prednisone 50 mg p.o. daily to complete 5 days. She has been instructed to take her Imitrex as soon as her headache begins. She needs to follow-up with her usual neurologist
in the office, as well as her primary care doctor in 1 week.
Disposition: Home self-care
Discharge planning: Required 36 minutes
Discharge Plan
-
Patient Disposition: Home (Routine Discharge)
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
Condition: Fair
Diet: Regular
Activity: As tolerated
Driving Restrictions: As prior to admission
Activity Restrictions/Additional Instructions:
Please follow-up with your primary care doctor in 1 week, and your usual neurologist as soon as possible.
Referrals:
Junior Lui MD [Family Provider] - in one week
Prescriptions:
New
prednisone 50 mg tablet
50 mg PO DAILY 4 Days Qty: 4 0RF
metoclopramide HCl [Reglan] 10 mg tablet
10 mg PO Q6H PRN (Reason: headache) Qty: 30 0RF
diphenhydramine HCl 50 mg capsule
50 mg PO Q6H PRN (Reason: headache) Qty: 30 0RF
Continued
trazodone 50 mg tablet
75 mg PO HS
ferrous sulfate 325 mg (65 mg iron) Tablet
325 mg PO DAILY
riboflavin (vitamin B2) 400 mg Tablet
400 mg PO DAILY
Changed
sumatriptan succinate 25 mg tablet
50 mg PO DAILYPRN PRN (Reason: migraine) Qty: 60 0RF
Discharge Orders:
Discharge Patient (As Directed); Ordered 11/17/23
Ordered By: Duke Singer
Discharge Date and Time
Discharge Date/Time: 11/17/23 12:09
Print Language: SAO TOMEAN
[2023-11-17] MEDS: DELTASONE 50 MG PO (11:34)
[2023-11-17 11:42] VITALS: BP 112/68
== END 2023-11-17 12:09 | disposition home or self-care (01) | DRG 103 ==
LOC: 3 WEST ACU 22:40
PROVIDERS: Emergency Medicine; ADMITTING PHYSICIAN Hospitalist; ATTENDING PHYSICIAN Family Medicine; EMERGENCY PHYSICIAN Emergency Medicine; FAMILY PHYSICIAN Internal Medicine; OTHER PHYSICIAN Student in an Organized Health Care Education/Training Program
DX: G43.409 Hemiplegic migraine, not intractable, without status migrainosus (principal); G43.109 Migraine with aura, not intractable, without status migrainosus; J45.909 Unspecified asthma, uncomplicated; K21.9 Gastro-esophageal reflux disease without esophagitis; G93.2 Benign intracranial hypertension; D50.9 Iron deficiency anemia, unspecified; Z79.899 Other long term (current) drug therapy; Z82.0 Family history of epilepsy and other diseases of the nervous system
CPT/HCPCS: 70450; 70496; 70498; 70553; 80053; 84703; 85025; 96361; 96365; 96375; 99285; A9575; Q9967

== ENCOUNTER 2024-04-14 22:54 | Emergency (ER) | payer OTHER, SELFPAY ==
[2024-04-14 23:02] VITALS: BP 114/72
[2024-04-15] MEDS: TORADOL 15 MG IM (00:13)
[2024-04-15] MEDS: ZOFRAN ODT (ORALLY DISINTEGRATING) 4 MG PO (00:13)
[2024-04-15 00:18] VITALS: BMI 34.8
[2024-04-15 00:19] VITALS: BP 102/75
[2024-04-15 00:43] LABS: COVID-19 Antigen Negative (Negative)
[2024-04-15 01:00] VITALS: BP 103/60
--- NOTE | 2024-04-15 01:13 | ED.GENMED ---
History of Present Illness
General
Chief Complaint: Cold/Flu/URI Symptoms
Time Seen by Provider: 04/14/24 23:41
History of Present Illness
History of Present Illness:
38-year-old female without significant past medical history presenting to the emergency to the emergency department for 2 days of fever, chills, body aches. Reports that she took Tylenol prior to arrival and also took some amoxicillin that she had
in her house. Denies chest pain or difficulty breathing or cough. Denies known sick contacts. Denies abdominal pain. Did have an episode of vomiting prior to arrival. Denies additional acute medical complaints
Past History
Past History
ED Past Medical History: Asthma and GERD
ED Past Surgical History: and Other (Herniorrhaphy)
Social History
Tobacco: Non-smoker
Alcohol: None
Drug: None
Personal:
Living: with family
Employment: Other
Family History
Family History: Negative Early CAD or CAD
Phy Exam
Physical Exam
Physical Exam:
General: Well-appearing, no clinical signs of dehydration, nontoxic and in no acute distress
HEENT: protecting airway
Neck: appears supple
CV: Normal heart rate, regular rhythm, no evidence of cyanosis
Resp: No accessory muscle use, no increased work of breathing, lungs clear to auscultation bilaterally
Abd: Soft and non-distended, no tenderness to palpation
Extremities: No deformities, no swelling
Neuro: alert, no focal neurologic deficit
: deferred
Rectal: deferred
Psych: Normal affect
Skin: Intact
Sepsis
Sepsis Screening
Sepsis Assessment: Sepsis Ruled Out
Sepsis Screen
Sepsis Screen: Sepsis Ruled Out
Date: 04/15/24
Time: 01:52
Course
Orders/Labs/Results
Orders:
Orders
04/14/24 23:06
Influenza A+B Rapid Molecular Urgent
PILAR Source: Nasal Swab
Specimen Description:
04/15/24 00:01
Ketorolac [Toradol] 15 mg IM NOW STA
Ondansetron Orally Disint [Zofran Odt (Orally Disintegrating)] 4 mg PO NOW STA
04/15/24 00:17
COVID-19 Antigen Urgent
Source: Nasal Swab
Vital Signs
Initial and Last Documented VS:
Initial Vital Signs
Temp Pulse Resp BP Pulse Ox
99.5 F 124 28 114/72 100
04/14/24 23:02 04/14/24 23:02 04/14/24 23:02 04/14/24 23:02 04/14/24 23:02
Last Documented Vital Signs
Temp Pulse Resp BP Pulse Ox
99.5 F 100 28 103/60 94
04/14/24 23:02 04/15/24 01:28 04/14/24 23:02 04/15/24 01:00 04/15/24 01:15
MDM/Problems Addressed
MDM/Problems Addressed:
38-year-old female without significant past medical history presenting for fever, body aches, vomiting. Vital signs significant for tachycardia and low-grade fever.
On exam patient is resting comfortably, no acute distress or discomfort. Patient is nontoxic in appearance. Unremarkable exam without any focal abnormalities -lungs clear to auscultation, abdomen soft and nontender, normal oropharynx, no systemic
rash. Without present concern for bacterial infection. Suspected viral syndrome. Will swab for flu and COVID. Will treat patient therapeutically with Zofran and Toradol.
01:10 - Viral swabs negative. Patient remained stable with improvement of vital signs. Feel stable for discharge with continued outpatient supportive therapy. Return precautions discussed and patient verbalized understanding
*Critical Care Note
Total Time (30-74mins, 75-104mins- exclusive of procedures): Not Applicable
ED Attending Note
-
Portions of this chart may have been created with voice recognition software.� Occasional wrong word or��sound alike� substitutions may have occurred due to the inherent limitations of voice recognition software.
Discharge Plan
Departure
Patient Disposition: Home (Routine Discharge)
Date of Disposition: 04/15/24
Time of Disposition: 01:11
Patient with high blood pressure during this ER visit?: No
Condition: Good
Discharge Problem:
Acute viral syndrome
Instructions: Viral Upper Respiratory Infection, Adult (DC), Viral Syndrome (DC)
Prescriptions:
No Action
trazodone 50 mg tablet
75 mg PO HS
ferrous sulfate 325 mg (65 mg iron) Tablet
325 mg PO DAILY
riboflavin (vitamin B2) 400 mg Tablet
400 mg PO DAILY
prednisone 50 mg tablet
50 mg PO DAILY 4 Days Qty: 4 0RF
metoclopramide HCl [Reglan] 10 mg tablet
10 mg PO Q6H PRN (Reason: headache) Qty: 30 0RF
diphenhydramine HCl 50 mg capsule
50 mg PO Q6H PRN (Reason: headache) Qty: 30 0RF
sumatriptan succinate 25 mg tablet
50 mg PO DAILYPRN PRN (Reason: migraine) Qty: 60 0RF
Referrals:
Junior Lui MD [Family Provider] -
Stand Alone Forms: Return to Work
Activity Restrictions/Additional Instructions:
You were seen in the emergency department for fever and bodyaches
You are suspected to have a viral infection. Please continue to drink fluids as tolerated and Tylenol or Motrin for your fever
Please follow-up closely with your primary care physician.
Return to the emergency department for any worsening of your symptoms, or any development of chest pain, difficulty breathing, abdominal pain with persistent vomiting and inability to tolerate food or liquid by mouth (concern for dehydration),
weakness, headache or confusion, fever greater than 100.4, or any additional symptoms that are concerning to you.
Thank you for choosing [facility].
Interventions
Interventions:
*Risk Screen - Suicide Last Done: 04/14/24 23:02
*General Assessment Last Done: 04/15/24 00:20
*Neglect/Abuse Screening Last Done: 04/14/24 23:02
ED- Fall Risk Assessment Last Done: 04/15/24 00:20
*ED COVID-19 Vaccine History Last Done: 04/15/24 00:20
*Nursing Disposition Last Done: 04/15/24 01:28
ED- Pulmonary Assessment Last Done: 04/15/24 00:20
Discharge Date and Time
Discharge Date/Time: 04/15/24 01:44
Print Language: ITALIAN
== END 2024-04-15 01:44 | disposition home or self-care (01) ==
LOC: EMR 22:54
PROVIDERS: EMERGENCY PHYSICIAN Student in an Organized Health Care Education/Training Program; FAMILY PHYSICIAN Internal Medicine
DX: B34.9 Viral infection, unspecified (principal); J45.909 Unspecified asthma, uncomplicated; K21.9 Gastro-esophageal reflux disease without esophagitis
CPT/HCPCS: 99282; 96372; 87502; 87811